=== PATIENT | male | born 1970 | race Caucasian/White ===

== ENCOUNTER 2016-12-30 14:30 | Emergency (ER) | payer OTHER ==
[~2016-12-30] VITALS: Ht 170.2 cm; Wt 64.4 kg
[2016-12-30 14:35] VITALS: BP 114/92
== END 2016-12-30 14:56 | disposition home or self-care (01) ==
LOC: ER 14:31
DX: Z76.0 Encounter for issue of repeat prescription (principal); F41.9 Anxiety disorder, unspecified; I48.91 Unspecified atrial fibrillation; Z98.890 Other specified postprocedural states
CPT/HCPCS: A4606; Z7610

== ENCOUNTER 2017-01-19 05:50 | Emergency (ER) | payer OTHER ==
[~2017-01-19] VITALS: Ht 170.2 cm; Wt 65.8 kg
[2017-01-19 06:25] VITALS: BP 136/84
== END 2017-01-19 06:57 | disposition home or self-care (01) ==
LOC: ER 05:50
DX: K04.7 Periapical abscess without sinus (principal); F41.9 Anxiety disorder, unspecified; I48.91 Unspecified atrial fibrillation; J32.9 Chronic sinusitis, unspecified; Z98.890 Other specified postprocedural states; F10.20 Alcohol dependence, uncomplicated
CPT/HCPCS: A4606; Z7610